=== PATIENT | female | born 1955 | race African-American/Black ===

== ENCOUNTER 2017-09-01 14:25 | Emergency (ER) | payer SELFPAY ==
[~2017-09-01] VITALS: Ht 162.6 cm; Wt 59.1 kg
[~2017-09-01 14:25] MED LIST: IBUP600T26 PO; ROBA750T3 PO
[2017-09-01 14:39] VITALS: BP 160/95; PULSE 84; RESP 16; TEMP 98.5; O2SAT 100
--- NOTE | 2017-09-01 15:42 | PD ---
HPI Chief Complaint: Headache Time Seen by Provider: 15:28 Travel History International Travel<30 days: No Contact w/Intl Traveler<30days: No Traveled to known affect area: No History of Present Illness HPI 62-year-old female complains of headache. Patient states the headache aching headache in the back of the head and upper neck area. Patient denies any visual change. Patient denies any photophobia. Patient denies any nausea vomiting. Patient denies any fever chills. Patient denies any recent injury. Patient states that she has history of recurrent headache in the past. Patient states that she took Aleve in the past without much relief of the headache. Patient denies any past pertinent history. Patient denies history hypertension , diabetes, hyperlipidemia. Patient drinks beer occasionally. Patient is a non -smoker. PFSH Past Medical History Medical History: Denies Significant Hx Influenza Vaccination: Yes Tubal Ligation: Yes Past Surgical History Surgical History: No Previous Surgery Social History Alcohol Use: Yes (6 PK BEER WEEKLY) Tobacco Use: No Substance Use: No Allergies-Medications (Allergen,Severity, Reaction): Coded Allergies: No Known Allergies (Verified Adverse Reaction, Unknown, 09/01/17) Reported Meds & Prescriptions Reported Meds & Active Scripts Active No Active Prescriptions or Reported Medications Review of Systems General / Constitutional: No: Fever Eyes: No: Visual changes HENT: Positive: Headaches Cardiovascular: No: Chest Pain or Discomfort Respiratory: No: Shortness of Breath Gastrointestinal: No: Abdominal Pain Genitourinary: No: Dysuria Musculoskeletal: No: Pain Skin: No Rash Neurologic: No: Weakness Psychiatric: No: Depression Endocrine: No: Polydipsia Hematologic/Lymphatic: No: Easy Bruising Physical Exam Narrative GENERAL: Well-nourished, well-developed patient. SKIN: Focused skin assessment warm/dry. HEAD: Normocephalic. EYES: No scleral icterus. No injection or drainage. Pupils 2 mm equal reactive. NECK: Supple, trachea midline. No JVD or lymphadenopathy. No meningismus CARDIOVASCULAR: Regular rate and rhythm without murmurs, gallops, or rubs. RESPIRATORY: Breath sounds equal bilaterally. No accessory muscle use. GASTROINTESTINAL: Abdomen soft, non-tender, nondistended. MUSCULOSKELETAL: No cyanosis, or edema. BACK: Nontender without obvious deformity. No CVA tenderness. Neurologic exam: Patient awake and alert oriented 3. No obvious focal neurological deficit. Data Data Last Documented VS Vital Signs Date Time Temp Pulse Resp B/P (MAP) Pulse Ox O2 Delivery O2 Flow Rate FiO2 09/01/17 14:59 17 Room Air 09/01/17 14:39 98.5 84 160/95 (116) [address] Brain W/O Iv Contrast(Rout) (09/01/17 15:33) Ketorolac Inj (Toradol Inj) (09/01/17 15:45) Ed Discharge Order (09/01/17 17:12) MDM Medical Decision Making Medical Screen Exam Complete: Yes Emergency Medical Condition: Yes Interpretation(s) [address] scan of brain negative acute pathology. Differential Diagnosis Differential diagnosis including migraine headache, tension headache, cluster headache. Narrative Course 62-year-old female with headache. Toradol 60 mg IM. Diagnosis Primary Impression: Cephalgia Qualified Codes: R51 - Headache Patient Instructions: General Instructions Additional Instructions: Take medication as directed for headache. Follow-up with personal physician. Return if persistent headache or worse. Med/Other Pt SpecificInfo: Prescription(s) given Scripts Bqewdgdevp-Fjoxivgmwaszv-Pegjenly (Fioricet) 50-300-40 Mg Cap 1-2 CAP PO Q6H Y for HEADACHE, #30 CAP 0 Refills Prov: Tho Root MD 09/01/17 Disposition: 01 DISCHARGE HOME Condition: Stable Tho Root MD Sep 01, 2017 15:42
[2017-09-01] MEDS ORDERED: KETOROLAC TROMETHAMINE 60 MG/2 ML (IM) VIAL IM ONE (15:45)
--- NOTE | 2017-09-01 16:33 | RADRPT ---
EXAM DATE/TIME: 09/01/2017 16:14 [facility] COMPARISON: No previous studies available for comparison. INDICATIONS : Posterior headache for four days. RADIATION DOSE: 56.35 CTDIvol (mGy) MEDICAL HISTORY : None SURGICAL HISTORY : None. ENCOUNTER: Initial ACUITY: 1 day PAIN SCALE: 6/10 LOCATION: occipital TECHNIQUE: Multiple contiguous axial images were obtained of the head. Using automated exposure control and adj ustment of the mA and/or kV according to patient size, radiation dose was kept as low as reasonably a chievable to obtain optimal diagnostic quality images. DICOM format image data is available electro nically for review and comparison. FINDINGS: CEREBRUM: The ventricles are normal for age. No evidence of midline shift, mass lesion, hemorrhage or acute in farction. No extra-axial fluid collections are seen. POSTERIOR FOSSA: The cerebellum and brainstem are intact. The 4th ventricle is midline. The cerebellopontine angle i s unremarkable. EXTRACRANIAL: The visualized portion of the orbits is intact. SKULL: The calvaria is intact. No evidence of skull fracture. CONCLUSION: Negative for acute process. Subacute subarachnoid hemorrhage cannot be entirely excluded. David Zimmerman MD FACR on September 01, 2017 at 16:31 Board Certified Radiologist. This report was verified electronically.
[2017-09-01] MEDS ORDERED: BUTA1CAP PO (17:14)
== END 2017-09-01 17:20 | disposition home or self-care (01) ==
LOC: NEPD 14:25
DX: R51 Headache (principal)
CPT/HCPCS: 70450; 96372; 99283; J1885